=== PATIENT | male | born 1995 | race African-American/Black ===

== ENCOUNTER 2017-07-05 13:38 | Emergency (ER) | payer OTHER ==
[~2017-07-05] VITALS: Ht 188 cm; Wt 91.5 kg
[2017-07-05 14:08] LABS: HEMATOCRIT 43.1 % (38.0-50.0); HEMOGLOBIN 14.7 G/DL (12.5-16.6); MCH 28.1 PG (29.0-34.0); MCHC 34.1 G/DL (30.0-36.0); MCV 82.4 FL (86-99); PLATELET COUNT 188 K/uL (156-360); RBC DIS.WIDTH-CV 12.1 % (11.8-14.6); RBC DIS.WIDTH-SD 37.2 % (39-53); RED BLOOD COUNT 5.23 M/uL (4.00-5.50); WHITE BLOOD COUNT 3.2 K/uL (4.1-10.2)
[2017-07-05 14:18] LABS: ALBUMIN 4.3 g/dL (3.2-4.8); CHLORIDE 105 mEq/L (99-109); SODIUM 139 mEq/L (136-147)
[2017-07-05 14:20] LABS: GLUCOSE 93 mg/dL (70-99); TOTAL PROTEIN 7.4 g/dL (6.4-8.3)
[2017-07-05 14:22] LABS: TOTAL BILIRUBIN 0.6 mg/dL (0.0-1.0)
[2017-07-05 14:24] LABS: ALKALINE PHOSPHATASE 72 IU/L (3-129); CREATININE 1.2 mg/dL (0.6-1.3)
[2017-07-05 14:25] LABS: AST (GOT) 29 IU/L (2-34); UREA NITROGEN (BUN) 14 mg/dL (9-23)
[2017-07-05 14:25] LABS: APPEARANCE CLEAR ((CLEAR)); BILIRUBIN NEGATIVE; BLOOD NEGATIVE; COLOR YELLOW ((YELLOW)); GLUCOSE (STRIP) NEGATIVE; KETONES 5; LEUKOCYTES NEGATIVE; NITRITE NEGATIVE; PROTEIN (STRIP) 30; SPECIFIC GRAVITY 1.036 (1.000-1.030); UCUL ADDED? NO
[2017-07-05 14:27] LABS: ALT (GPT) 21 IU/L (3-49); LIPASE 18 U/L (1.0-51.0)
[2017-07-05 14:30] LABS: GFR ESTIMATE (CALCULATED) > 59 mL/min/ (58.99-99999)
[2017-07-05 16:12] LABS: C DIFF TOXIN NEGATIVE (NEGATIVE)
[2017-07-05 16:26] VITALS: BP 108/65
== END 2017-07-05 16:56 | disposition home or self-care (01) ==
LOC: EME 13:38
PROVIDERS: Physician Assistant
DX: R19.7 Diarrhea, unspecified (principal); R10.12 Left upper quadrant pain
CPT/HCPCS: 80053; 81003; 83630; 83690; 85027; 87493; 87506; 99281; 99284